=== PATIENT | male | born 1970 | race Caucasian/White ===

== ENCOUNTER 2021-09-19 08:06 | Day surgery (SDC) | payer MEDICAID, OTHER, SELFPAY ==
[~2021-09-19 08:06] MED LIST: Lactated Ringers 1,000 ML IV SCH; Sodium Chloride 0.9% 10 ML Syringe FLUSH PRN
[2021-09-19] MEDS ORDERED: Propofol 200 MG/20 ML SDV ONE ×3 (08:24→10:31)
[2021-09-19] MEDS ORDERED: fentaNYL 100 MCG/2 ML SDV ONE (08:24)
== END 2021-09-19 12:30 | disposition home or self-care (01) ==
LOC: VM.SDS 08:06
PROVIDERS: ATTEND Family Medicine
DX: Z12.11 Encounter for screening for malignant neoplasm of colon (principal); D12.2 Benign neoplasm of ascending colon; K44.9 Diaphragmatic hernia without obstruction or gangrene; K29.90 Gastroduodenitis, unspecified, without bleeding; K31.89 Other diseases of stomach and duodenum; K86.89 Other specified diseases of pancreas; E78.00 Pure hypercholesterolemia, unspecified; G89.29 Other chronic pain; K21.9 Gastro-esophageal reflux disease without esophagitis; Z79.899 Other long term (current) drug therapy
CPT/HCPCS: 00813; J2704; J3010; J7120

== ENCOUNTER 2024-07-21 07:49 | Day surgery (SDC) | payer MEDICAID ==
[~2024-07-21 07:49] MED LIST changes: -Sodium Chloride 0.9% 10 ML Syringe FLUSH PRN
[2024-07-21] MEDS: Lactated Ringers 1,000 ML IV SCH (08:00)
[2024-07-21] MEDS ORDERED: Propofol 200 MG/20 ML SDV ONE (08:17)
[2024-07-21] MEDS ORDERED: fentaNYL 100 MCG/2 ML SDV ONE (08:18)
== END 2024-07-21 11:01 | disposition home or self-care (01) ==
LOC: VM.SDS 07:49
PROVIDERS: ATTEND Family Medicine
DX: K21.9 Gastro-esophageal reflux disease without esophagitis (principal); K44.9 Diaphragmatic hernia without obstruction or gangrene; E78.00 Pure hypercholesterolemia, unspecified
CPT/HCPCS: 43239; J2704; J3010; J7120

== ENCOUNTER 2025-04-14 17:04 | Emergency (ER) | payer MEDICAID | END 2025-04-14 19:01 | disposition home or self-care (01) | LOC: VM.ED 17:04 | DX: S01.512A Laceration without foreign body of oral cavity, initial encounter (principal); K21.9 Gastro-esophageal reflux disease without esophagitis; E78.00 Pure hypercholesterolemia, unspecified; Z79.899 Other long term (current) drug therapy; W50.0XXA Accidental hit or strike by another person, initial encounter | CPT/HCPCS: 12011; 99283; J2003 ==